=== PATIENT | male | born 1980 | race Caucasian/White ===

== ENCOUNTER 2017-07-08 04:27 | Emergency (ER) | payer OTHER ==
[2017-07-08 04:45] VITALS: BP 144/90; PULSE 66; O2SAT 100
[2017-07-08] MEDS ORDERED: Adacel Vial IM ONE ×2 (04:47→04:50)
[2017-07-08] MEDS ORDERED: XYLOCAINE 1% HCL 20 ML MDV IJ ONE (04:47)
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
[2017-07-08] MEDS ORDERED: BACIGUENT PACKET ONE (05:10)
== END 2017-07-08 05:25 | disposition home or self-care (01) ==
LOC: ED 04:27
PROC: 0HQGXZZ Repair Left Hand Skin, External Approach (ICD-10-PCS; principal; 2017-07-08)
DX: S61.012A Laceration without foreign body of left thumb without damage to nail, initial encounter (principal); W26.0XXA Contact with knife, initial encounter
CPT/HCPCS: 12001; 90471; 90715; 99284; A9270-GY

== ENCOUNTER 2020-10-21 13:02 | Emergency (ER) | payer OTHER ==
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
[2020-10-21 13:26] VITALS: BP 148/101; PULSE 94; O2SAT 99
== END 2020-10-21 14:53 | disposition home or self-care (01) ==
LOC: ED 13:02
DX: T22.112A Burn of first degree of left forearm, initial encounter (principal); T23.172A Burn of first degree of left wrist, initial encounter; X03.8XXA Other exposure to controlled fire, not in building or structure, initial encounter; Y93.89 Activity, other specified; Y92.89 Other specified places as the place of occurrence of the external cause; Y99.0 Civilian activity done for income or pay
CPT/HCPCS: 99283